=== PATIENT | male | born 1940 ===

== ENCOUNTER 2018-01-08 11:39 | Inpatient (IN) | payer OTHER ==
[2018-01-04 17:52] VITALS: BMI 22.0
[2018-01-08] MEDS ORDERED: Lidocaine 2% Inj (20ml) ONE (14:41)
[2018-01-08] MEDS ORDERED: Phenylephrine 10 mg/ml Inj ONE (15:34)
[2018-01-08] MEDS ORDERED: ePHEDrine 50 mg/ml Inj ONE (15:38)
--- NOTE | 2018-01-08 15:50 | CP.PCM.PN ---
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 The risks including serious morbidity (stroke, ICH etc) and even mortality were discussed, the benefits including decreased risk of stroke and the alternatives including medical management and surgery were discussed. 2) Further management based on the results of the procedure 3) Mild left sided weakness on exam
--- NOTE | 2018-01-08 18:15 | PCM.SURG1 ---
Surgeon's Initial Post Op Note - Surgeon's Notes Surgeon: Dr. Burciaga Sales Representative Trainee: Dr. Rdz, Dr. Sky Holm Type of Anesthesia: MAC Anesthesia Administered By: Hsei Pre-Operative Diagnosis: High grade Stenosis of right ICA Operative Findings: High grade stenosis of right ICA with multiple irregularities in the stenotic segment Post-Operative Diagnosis: Successful Stenting and Angioplasty of right ica high grade stenosis Operation Performed: Stenting and Angioplasty of right Internal Carotid Artery Specimen/Specimens Removed: None Estimated Blood Loss: EBL {In ML}: 200 Blood Products Given: N/A Drains Used: No Drains Post-Op Condition: Fair Date of Surgery/Procedure: 01/08/18 Time of Surgery/Procedure: 16:00
--- NOTE | 2018-01-08 18:19 | CP.PCM.CON ---
History of Present Illness - History of Present Illness History of Present Illness: Chief Concern: Left Sided Weakness HPI: Mr. Brown is a 77 yo gentleman with a medical history significant for arthritis who was brought in for left sided weakness. The patient was evaluated and found to have right mca territory patchy infarction. A CTA revealed a high grade stenosis of the proximal right ica and neuro intervention was consulted. The patient reports that he is much better now except for mild left hand weakness and numbness. Not other complaints at this time. All: NKDA Meds: Reviewed: PMH: Arthritis Social History: No t/e/d FH: NC On exam: Vitals reviewed MSE: AO X 3, No aphasia or neglect, No dysarthria CN: Pupils symmetric and reactive, VFF, EOM full, V1-3 intact, NO facial paresis , tongue midline Motor: 5/5 on right side, left leg 5/5, left hand 3/5, left arm 5/5 Sensory: Decreased over left hand Coord: No dysmetria Gait: Deferred MRI Brain: Multiple Acute infarctions the right hemisphere CTA: High grade stenosis of right ICA proximal segment Imp: 1 Acute Ischemic Stroke Recs: 1) The patient has a symptomatic high grade stenosis of the right ica 2) I had a detailed conversation with the patient, his and son regarding the serious nature of the patients condition and they express excellent understanding of the same. The risks including serious morbidity (stroke, ICH etc) and even mortality were discussed, the benefits including decreased risk of stroke and the alternatives including medical management and surgery were discussed. 3) Further management based on the results of the procedure 4) Approximately 45 minutes of critical care time was spent in evaluating and managing and documenting and coordinating care for this patient with acute ischemic stroke Past Patient History - Past Medical History & Family History Past Medical History?: Yes - Past Social History Smoking Status: Never Smoked - CARDIAC Hx Cardiac Disorders: No - PULMONARY Hx Respiratory Disorders: No - NEUROLOGICAL Hx Neurological Disorder: No - HEENT Hx HEENT Problems: No - RENAL Hx Chronic Kidney Disease: No - ENDOCRINE/METABOLIC Hx Endocrine Disorders: No - HEMATOLOGICAL/ONCOLOGICAL Hx Blood Disorders: No Hx AIDS: No Hx Human Immunodeficiency Virus (HIV): No - INTEGUMENTARY Hx Dermatological Problems: No - MUSCULOSKELETAL/RHEUMATOLOGICAL Hx Arthritis: Yes - GASTROINTESTINAL Hx Gastrointestinal Disorders: No - GENITOURINARY/GYNECOLOGICAL Hx Genitourinary Disorders: No - PSYCHIATRIC Hx Psychophysiologic Disorder: No Hx Substance Use: No - SURGICAL HISTORY Hx Surgeries: No - ANESTHESIA Hx Anesthesia: No Hx Anesthesia Reactions: No Hx Malignant Hyperthermia: No Meds Allergies/Adverse Reactions: Allergies Allergy/AdvReac Type Severity Reaction Status Date / Time No Known Allergies Allergy Verified 01/17/15 16:21 Results - Labs Result Diagrams: 01/09/18 06:40 01/09/18 06:40 Assessment & Plan - Assessment and Plan (Free Text) Assessment: Acute ischemic stroke Plan: Chief Concern: Left Sided Weakness HPI: Mr. Brown is a 77 yo gentleman with a medical history significant for arthritis who was brought in for left sided weakness. The patient was evaluated and found to have right mca territory patchy infarction. A CTA revealed a high grade stenosis of the proximal right ica and neuro intervention was consulted. The patient reports that he is much better now except for mild left hand weakness and numbness. Not other complaints at this time. All: NKDA Meds: Reviewed: PMH: Arthritis Social History: No t/e/d FH: NC On exam: Vitals reviewed MSE: AO X 3, No aphasia or neglect, No dysarthria CN: Pupils symmetric and reactive, VFF, EOM full, V1-3 intact, NO facial paresis , tongue midline Motor: 5/5 on right side, left leg 5/5, left hand 3/5, left arm 5/5 Sensory: Decreased over left hand Coord: No dysmetria Gait: Deferred MRI Brain: Multiple Acute infarctions the right hemisphere CTA: High grade stenosis of right ICA proximal segment Imp: 1 Acute Ischemic Stroke Recs: 1) The patient has a symptomatic high grade stenosis of the right ica 2) I had a detailed conversation with the patient, his and son regarding the serious nature of the patients condition and they express excellent understanding of the same. The risks including serious morbidity (stroke, ICH etc) and even mortality were discussed, the benefits including decreased risk of stroke and the alternatives including medical management and surgery were discussed. 3) Further management based on the results of the procedure 4) Approximately 45 minutes of critical care time was spent in evaluating and managing and documenting and coordinating care for this patient with acute ischemic stroke - Date & Time Date: 01/08/18 Time: 15:15
--- NOTE | 2018-01-08 18:23 | CP.PCM.CON ---
<Marvin Cross - Last Filed: 01/08/18 18:36> History of Present Illness - History of Present Illness History of Present Illness: Chief complaint: Left face and left upper extremity numbness HPI:77 years old male with no significant medical hx comes with Intermittent left facial numbness for 14 hours. He awoke with this numbness which also involves the left side of his tongue. He also has numbness at the upper left extremity. No trouble in swallowing, speaking, nor ambulating. No facial droop nor weakness at the extremities. He had a similar episode one month ago but this resolved spontaneously over few days. ICU was consulted to monitor patient s/p carotid endarectomy. PMH: Arthritis PSH: Denies SH: No illegal drug use; no Alcohol use; Never smoked FH: States: No Known family Allergies: NKDA Medication: ASA Review of Systems - Constitutional Constitutional: absent: Daytime Sleepiness, Headache, Snoring - EENT Eyes: absent: Blurred Vision, Loss of Peripheral Vision, Other Visual Disturbances Ears: absent: Ear Discharge Nose/Mouth/Throat: absent: Nasal Congestion, Bleeding Gums, Odynophagia, Facial Pain - Cardiovascular Cardiovascular: absent: Chest Pain, Chest Pain at Rest, Claudication, Diaphoresis, Edema, Orthopnea, Palpitations, Paroxysmal Nocturnal Dyspnea, Pedal Edema, Syncope - Respiratory Respiratory: absent: Dyspnea, Hemoptysis, Stridor, Pain on Inspiration, Change in Mucous Color - Gastrointestinal Gastrointestinal: absent: Belching, Change in Stool Character, Dyspepsia, Fecal Incontinence, Loose Stools, Melena, Nausea, Vomiting - Musculoskeletal Musculoskeletal: absent: Abnormal Gait, Arthralgias, Limited Range of Motion, Myalgias, Stiffness, Tingling - Integumentary Integumentary: absent: Bleeding Lesions, Change in Pigmentation, Lesions, Photosensitivity, Rash, Swelling, Unusual Bruising - Neurological Neurological: absent: Abnormal Hearing, Burning Sensations, Lack of Coordination , Syncope, Tingling, Tremor, Vertigo - Psychiatric Psychiatric: absent: Anhedonia, Change in Appetite, Mood Swings, Panic Attacks - Endocrine Endocrine: absent: Polydipsia, Polyphagia, Polyuria Past Patient History - Past Medical History & Family History Past Medical History?: Yes - Past Social History Smoking Status: Never Smoked - CARDIAC Hx Cardiac Disorders: No - PULMONARY Hx Respiratory Disorders: No - NEUROLOGICAL Hx Neurological Disorder: No - HEENT Hx HEENT Problems: No - RENAL Hx Chronic Kidney Disease: No - ENDOCRINE/METABOLIC Hx Endocrine Disorders: No - HEMATOLOGICAL/ONCOLOGICAL Hx Blood Disorders: No Hx AIDS: No Hx Human Immunodeficiency Virus (HIV): No - INTEGUMENTARY Hx Dermatological Problems: No - MUSCULOSKELETAL/RHEUMATOLOGICAL Hx Arthritis: Yes - GASTROINTESTINAL Hx Gastrointestinal Disorders: No - GENITOURINARY/GYNECOLOGICAL Hx Genitourinary Disorders: No - PSYCHIATRIC Hx Psychophysiologic Disorder: No Hx Substance Use: No - SURGICAL HISTORY Hx Surgeries: No - ANESTHESIA Hx Anesthesia: No Hx Anesthesia Reactions: No Hx Malignant Hyperthermia: No Meds Allergies/Adverse Reactions: Allergies Allergy/AdvReac Type Severity Reaction Status Date / Time No Known Allergies Allergy Verified 01/17/15 16:21 Physical Exam - Head Exam Head Exam: ATRAUMATIC, NORMAL INSPECTION, NORMOCEPHALIC - Eye Exam Eye Exam: EOMI, Normal appearance, PERRL Pupil Exam: NORMAL ACCOMODATION, PERRL - ENT Exam ENT Exam: Mucous Membranes Moist, Normal Oropharynx - Neck Exam Neck exam: Positive for: Normal Inspection - Respiratory Exam Respiratory Exam: Clear to Auscultation Bilateral, NORMAL BREATHING PATTERN - Cardiovascular Exam Cardiovascular Exam: REGULAR RHYTHM, +S1, +S2 - GI/Abdominal Exam GI & Abdominal Exam: Normal Bowel Sounds, Soft. absent: Tenderness - Extremities Exam Additional comments: pressure bandage in the left and right groin. Small hematoma appreciated in the right groin. - Back Exam Back exam: NORMAL INSPECTION. absent: CVA tenderness (L), CVA tenderness (R), paraspinal tenderness - Neurological Exam Neurological exam: Alert, CN II-XII Intact, Oriented x3 - Skin Skin Exam: Dry, Intact Assessment & Plan - Assessment and Plan (Free Text) Assessment: 77 yr old male with new embolic stroke in right mca territory, most likely from rt ica stenosis as etiology. Patient is s/p carotid endarectomy and admitted to ICU for further management. Plan: Cardiology:s/pStenting and Angioplasty of right ica high grade stenosis, Dyslipidemia -MRI of head showed multifocal small acute infarctions in the right frontal and parietal cortex, and border zone, moderate chronic microangiopathic changes and mild age-related global parenchymal volume loss -CTA neck and head showed moderate stenosis at proximal right ica -ASA/Plavix held today post surgery. Will restart in the A.M. -Start statin tomorrow. -Lovenox held for the surgery. Restart tomorrow. <TorBhupinder mercedes - Last Filed: 01/08/18 18:52> Meds - Medications Medications: Current Medications Aspirin (Ecotrin) 81 mg PO DAILY NUPUR Sodium Chloride (Sodium Chloride 0.9%) 1,000 mls @ 75 mls/hr IV .[id number] NUPUR Pantoprazole Sodium (Protonix Inj) 40 mg IVP DAILY NUPUR Attending/Attestation - Attestation I have personally seen and examined this patient.: Yes I have fully participated in the care of the patient.: Yes I have reviewed all pertinent clinical information: Yes Notes (Text): 01/08/18 18:51 I have seen and examined the patient. Medical records, lab studies, and imaging were reviewed by me and a management plan was formulated on multidisciplinary rounds with resident Dr. Cross. I agree with their documented assessment and plan. Patient is clinically stable post-op. He states his left side weakness has now improved. Will monitor, q1h vascular access checks. Maintain SBP 100-140. Critical Care Time 35 minutes. Multi-disciplinary rounds were performed with house staff, nursing, speech therapy, respiratory therapy, pharmacy and nutrition with integrated input from the primary team/attending and other consulting services. The documented time is cumulative and includes review of patient data/exams/labs/chart review and examination of the patient on rounds and throughout the day; time is exclusive of any procedures or teaching time.
[2018-01-08] MEDS ORDERED: Sodium Chloride 0.9% 1,000 ML IV SCH (18:45)
--- NOTE | 2018-01-08 20:12 | CP.PCM.HP ---
History of Present Illness - History of Present Illness History of Present Illness: CC: Post-Status Stenting and Angioplasty of right Internal Carotid Artery due to High grade Stenosis of right ICA HPI: Patient is a 77 year old man visiting his sister and nephew from [place], with past medical history of hypercholesterolemia, who presented to [facility] on 01/04/18, with symptoms of Intermittent left facial numbness for 14 hours as well tongue stiffness and numbness/tingling in right index & thumb and upper left extremity. As per patient's nephew at bedside, patient had been experiencing symptoms for less than 48 hours. During the onset of these symptoms, patient denies nausea, vomiting, headache, blurry vision, gait disturbance, noted facial dropping or slurred speech. As per nephew, patient does not have facial dropping or slurred speech. PMHx: Arthritis and hypercholesterolemia PSHx: Denies FHx: Father: due to complications of cor pulmonale and had hx of gastric cancer. * Sister: Heart regurgitation * Uncle: Stroke Medication: ASA and [place]-3 Allergies: NKDA SHx: Lives in [place], . Denies former or current tobacco, ETOH and illicit drugs Present on Admission - Present on Admission Any Indicators Present on Admission: No Review of Systems - Constitutional Constitutional: absent: Chills, Fatigue, Fever, Headache, Weakness - EENT Eyes: absent: Blurred Vision, Change in Vision Nose/Mouth/Throat: absent: Nasal Congestion, Nasal Discharge - Cardiovascular Cardiovascular: absent: Chest Pain, Dyspnea, Lightheadedness, Palpitations - Respiratory Respiratory: absent: Cough, Dyspnea, Wheezing - Gastrointestinal Gastrointestinal: Nausea. absent: Abdominal Pain, Diarrhea, Vomiting - Neurological Neurological: Numbness, Tingling (Numbness and tingling in right index and thumb ). absent: Confusion, Dizziness, Headaches, Tremor, Weakness Past Patient History - Past Medical History & Family History Past Medical History?: Yes - Past Social History Smoking Status: Never Smoked - CARDIAC Hx Cardiac Disorders: No - PULMONARY Hx Respiratory Disorders: No - NEUROLOGICAL Hx Neurological Disorder: No - HEENT Hx HEENT Problems: No - RENAL Hx Chronic Kidney Disease: No - ENDOCRINE/METABOLIC Hx Endocrine Disorders: No - HEMATOLOGICAL/ONCOLOGICAL Hx Blood Disorders: No Hx AIDS: No Hx Human Immunodeficiency Virus (HIV): No - INTEGUMENTARY Hx Dermatological Problems: No - MUSCULOSKELETAL/RHEUMATOLOGICAL Hx Arthritis: Yes - GASTROINTESTINAL Hx Gastrointestinal Disorders: No - GENITOURINARY/GYNECOLOGICAL Hx Genitourinary Disorders: No - PSYCHIATRIC Hx Psychophysiologic Disorder: No Hx Substance Use: No - SURGICAL HISTORY Hx Surgeries: No - ANESTHESIA Hx Anesthesia: No Hx Anesthesia Reactions: No Hx Malignant Hyperthermia: No Meds Allergies/Adverse Reactions: Allergies Allergy/AdvReac Type Severity Reaction Status Date / Time No Known Allergies Allergy Verified 01/17/15 16:21 Physical Exam - Constitutional Appears: No Acute Distress - Head Exam Head Exam: ATRAUMATIC, NORMAL INSPECTION - Eye Exam Eye Exam: EOMI, Normal appearance, PERRL Pupil Exam: NORMAL ACCOMODATION, PERRL - ENT Exam ENT Exam: Mucous Membranes Moist - Respiratory Exam Respiratory Exam: Clear to Auscultation Bilateral, NORMAL BREATHING PATTERN. absent: Rales, Rhonchi, Wheezes - Cardiovascular Exam Cardiovascular Exam: REGULAR RHYTHM, +S1, +S2 - GI/Abdominal Exam GI & Abdominal Exam: Normal Bowel Sounds, Soft. absent: Diminished Bowel Sounds , Distended, Guarding - Extremities Exam Extremities exam: Positive for: full ROM, normal inspection. Negative for: calf tenderness, pedal edema Additional comments: Bilateral groin dressed, s/p Post-Status Stenting and Angioplasty of right Internal Carotid Artery due to High grade Stenosis of right ICA Left DP AND PT palpable Right PT palpable and DP faint on palpation and not audible via doppler - Back Exam Back exam: absent: CVA tenderness (L), CVA tenderness (R) - Neurological Exam Neurological exam: Alert, CN II-XII Intact, Oriented x3 - Psychiatric Exam Psychiatric exam: Normal Affect, Normal Mood - Skin Skin Exam: Normal Color Assessment & Plan (1) Carotid stenosis, right Assessment and Plan: Interventional Neurology: Dr. Patrica Sifuentes * Post-Status Stenting and Angioplasty of right Internal Carotid Artery due to High grade Stenosis of right ICA POD#1 Neurology: Dr. BERNAL * Management as per recommendation Imaging: -MRI of head showed multifocal small acute infarctions in the right frontal and parietal cortex, and border zone, moderate chronic microangiopathic changes and mild age-related global parenchymal volume loss -CTA neck and head showed moderate stenosis at proximal right ICA -Head CT: Nonspecific white matter changes. Acute infarction may be CT occult within first 24 hours. If a focal deficit persists, consider followup CT or MRI for further evaluation. -Neck MRA: No evidence of hemodynamically significant stenosis in the internal carotid arteries.Apparent sought segment stenosis in the right internal carotid artery approximately 1.5 cm distal to the origin. - Head MRA:Normal MR angiography of the brain. - Cartoid Artery US: Elevated peak systolic velocity and ICA/ CCA velocity ratio in the right internal carotid artery corresponding to severe (62 to 79%) stenosis. No evidence of hemodynamically significant stenosis in the left internal carotid artery. Patent vertebral arteries with antegrade flow. Medication/Management: * Aspirin 81mg PO daily * Plavix 75mg PO daily * Crestor 10mg PO HS Status: Acute (2) Acute CVA (cerebrovascular accident) Assessment and Plan: Neurology: Dr. BERNAL * Management as per recommendation Imaging: -MRI of head showed multifocal small acute infarctions in the right frontal and parietal cortex, and border zone, moderate chronic microangiopathic changes and mild age-related global parenchymal volume loss -CTA neck and head showed moderate stenosis at proximal right ICA -Head CT: Nonspecific white matter changes. Acute infarction may be CT occult within first 24 hours. If a focal deficit persists, consider followup CT or MRI for further evaluation. -Neck MRA: No evidence of hemodynamically significant stenosis in the internal carotid arteries.Apparent sought segment stenosis in the right internal carotid artery approximately 1.5 cm distal to the origin. - Head MRA:Normal MR angiography of the brain. - Cartoid Artery US: Elevated peak systolic velocity and ICA/ CCA velocity ratio in the right internal carotid artery corresponding to severe (62 to 79%) stenosis. No evidence of hemodynamically significant stenosis in the left internal carotid artery. Patent vertebral arteries with antegrade flow. Labs: Lipid Panel: TGL: 113, Cholesterol: 255, LDL: 195, HDL: 40 Hemoglobin A1c : 5.7 Medication/Management: * Aspirin 81mg PO daily * Plavix 75mg PO daily * Crestor 10mg PO HS Status: Acute (3) Hyperlipidemia Assessment and Plan: Lipid Panel: TGL: 113, Cholesterol: 255, LDL: 195, HDL: 40 Medications: * Crestor 10mg PO HS Status: Acute (4) Prophylactic measure Assessment and Plan: GI: Protonix 40 PO daily DVT: SCDs, will resume anticoagualtion as recommended as patient is Post-Status Stenting and Angioplasty of right Internal Carotid Artery due to High grade Stenosis of right ICA POD#1 All plans and management discussed with attending Status: Acute
[2018-01-09 06:52] LABS: BASO # 0.1 K/uL (0.0-0.2); BASO % 0.5 % (0.0-2.0); EOS # 0.2 K/uL (0.0-0.7); EOS % 1.4 % (0.0-4.0); HEMOGLOBIN 10.9 g/dL (12.0-18.0); LYMPH # 1.8 K/uL (1.0-4.3); LYMPH % 15.7 % (20.0-40.0); MEAN CELL VOLUME 90.9 fL (80.0-94.0); MEAN CORPUSCULAR HEMOGLOBIN 30.4 pg (27.0-31.0); MEAN CORPUSCULAR HGB CONC 33.5 g/dL (33.0-37.0); MEAN PLATELET VOLUME 8.7 fL (7.2-11.7); MONO # 1.4 K/uL (0.0-0.8); NEUT % 70.4 % (50.0-75.0); RBC 3.59 Mil/uL (4.40-5.90); RED CELL DISTRIBUTION WIDTH 13.1 % (11.5-14.5); WHITE BLOOD COUNT 11.4 K/uL (4.8-10.8)
[2018-01-09 07:11] LABS: MAGNESIUM 2.2 mg/dL (1.6-2.3)
[2018-01-09 07:12] LABS: ALB/GLOB RATIO 0.9 (1.0-2.1); ALBUMIN 2.8 g/dL (3.5-5.0); ALT/SGPT 28 U/L (21-72); AST/SGOT 27 U/L (17-59); BLOOD UREA NITROGEN 19 mg/dL (9-20); CALCIUM 7.5 mg/dl (8.6-10.4); GFR AFRICAN-AMERICAN > 60; GFR NON-AFRICAN AMERICAN > 60
[2018-01-09 08:22] VITALS: BP 102/51
--- NOTE | 2018-01-09 13:07 | CP.PCM.DIS ---
Provider - Provider Date of Admission: 01/08/18 13:30 Attending physician: Evert Banda MD Primary care physician: None Consults: Intervential Radiology Dr. Burciaga Time Spent in preparation of Discharge (in minutes): 40 Hospital Course - Lab Results Lab Results: Most Recent Lab Values WBC 11.4 K/uL (4.8-10.8) H 01/09/18 06:40 RBC 3.59 Mil/uL (4.40-5.90) L 01/09/18 06:40 Hgb 10.9 g/dL (12.0-18.0) L 01/09/18 06:40 Hct 32.7 % (35.0-51.0) L 01/09/18 06:40 MCV 90.9 fL (80.0-94.0) 01/09/18 06:40 MCH 30.4 pg (27.0-31.0) 01/09/18 06:40 MCHC 33.5 g/dL (33.0-37.0) 01/09/18 06:40 RDW 13.1 % (11.5-14.5) 01/09/18 06:40 Plt Count 198 K/uL (130-400) 01/09/18 06:40 MPV 8.7 fL (7.2-11.7) 01/09/18 06:40 Neut % (Auto) 70.4 % (50.0-75.0) 01/09/18 06:40 Lymph % (Auto) 15.7 % (20.0-40.0) L 01/09/18 06:40 [place] % (Auto) 12.0 % (0.0-10.0) H 01/09/18 06:40 Eos % (Auto) 1.4 % (0.0-4.0) 01/09/18 06:40 Baso % (Auto) 0.5 % (0.0-2.0) 01/09/18 06:40 Neut # (Auto) 8.0 K/uL (1.8-7.0) H 01/09/18 06:40 Lymph # (Auto) 1.8 K/uL (1.0-4.3) 01/09/18 06:40 [place] # (Auto) 1.4 K/uL (0.0-0.8) H 01/09/18 06:40 Eos # (Auto) 0.2 K/uL (0.0-0.7) 01/09/18 06:40 Baso # (Auto) 0.1 K/uL (0.0-0.2) 01/09/18 06:40 Sodium 131 mmol/L (132-148) L 01/09/18 06:40 Potassium 4.3 mmol/L (3.6-5.2) 01/09/18 06:40 Chloride 99 mmol/L (98-107) 01/09/18 06:40 Carbon Dioxide 26 mmol/L (22-30) 01/09/18 06:40 Anion Gap 11 (10-20) 01/09/18 06:40 BUN 19 mg/dL (9-20) 01/09/18 06:40 Creatinine 0.8 mg/dL (0.8-1.5) 01/09/18 06:40 Est GFR ( Amer) > 60 01/09/18 06:40 Est GFR (Non-Af Amer) > 60 01/09/18 06:40 Random Glucose 82 mg/dL (75-110) 01/09/18 06:40 Calcium 7.5 mg/dl (8.6-10.4) L 01/09/18 06:40 Phosphorus 3.6 mg/dL (2.5-4.5) 01/09/18 06:40 Magnesium 2.2 mg/dL (1.6-2.3) 01/09/18 06:40 Total Bilirubin 0.5 mg/dL (0.2-1.3) 01/09/18 06:40 AST 27 U/L (17-59) 01/09/18 06:40 ALT 28 U/L (21-72) 01/09/18 06:40 Alkaline Phosphatase 49 U/L (38-126) 01/09/18 06:40 Total Protein 5.8 g/dL (6.3-8.3) L 01/09/18 06:40 Albumin 2.8 g/dL (3.5-5.0) L 01/09/18 06:40 Globulin 3.1 gm/dL (2.2-3.9) 01/09/18 06:40 Albumin/Globulin Ratio 0.9 (1.0-2.1) L 01/09/18 06:40 - Hospital Course Hospital Course: Hospitalist Discharge Summary Patient was seen and examined at 1:00 PM 01/09/18 From H&P: HPI: Patient is a 77 year old man visiting his sister and nephew from [place], with past medical history of hypercholesterolemia, who presented to [facility] on 01/04/18, with symptoms of Intermittent left facial numbness for 14 hours as well tongue stiffness and numbness/tingling in right index & thumb and upper left extremity. As per patient's nephew at bedside, patient had been experiencing symptoms for less than 48 hours. During the onset of these symptoms, patient denies nausea, vomiting, headache, blurry vision, gait disturbance, noted facial dropping or slurred speech. As per nephew, patient does not have facial dropping or slurred speech. MRI Brain showed multiple areas of infarcts Right Parietal/Frontal Area Echocardiogram was unremarkable CTA Neck showed Right Internal Carotid Moderate Disease Patient was transferred from [facility] to [facility] on 01/08/18 for Right Carotid Artery Stenting by Interventional Neurology Dr. Burciaga. He was then monitored in the ICU overnight and there were no events and his blood pressure remained relatively normal. His presenting symptoms to [facility] have completely resolved. Upon FULL ROS NO dysphagia/odynopahgia NO soreness in throat NO cough NO sinus/nasal congestion NO fever/chills NO muscle aches/pains NO joint pain NO chest pain/palpations NO SOB NO abdominal pain NO n/v/d/c NO burning pain with urination NO SINGLETARY NO paresthesias NO lightheadedness/dizziness Exam: General: AAOX3, NAD HEENT: NCA, EOMI, PERRLA, NO cervical/supraclavicular/submandibular lymphadenopathy, NO pharyngeal erythema/exudate, Nasal Turbinates are nonerythematous/nonedematous, Oral Mucosa is moist Cardio: NS1 and NS2, NO M/R/G Resp: CTA B/L, NO R/R/W GI: BSx4, Soft, NT, NO HSM, NO guarding/rebound tenderness Ext: Pulses are strong and equal, Capillary Refill is 2 seconds, NO edema, Bilateral Groin area surgical entry site without evidence of bleeding or hematoma Neuro: CN II through XII are grossly intact, 5/5 strength with flexion and extension against my resistence of the bilateral upper and lower extremities, 2/ 4 DTRs gait is normal Patient is stable for discharge. The following instructions were explained to patient, voicemail left for his Nephew Clifford [phone] explaining the instructions, and a copy provided to him upon discharge: 1). Schedule follow up with Dr. Burciaga to take place in 14 days by calling his office [phone]. 2). Please have the following prescription filled at your pharmacy: Aspirin 81 mg, 1 tablet by mouth 1x/day (breakfast), Dispense #30, NO refills Plavix 75 mg, 1 tablet by mouth 1x/day (breakfast), Dispense #30, NO refills Atorvastatin 20 mg, 1 tablet by mouth 1x/day (dinner), Dispense #30, NO refills 3). Please take care and be well. Evert Banda D.O. Discharge Exam - Head Exam Head Exam: ATRAUMATIC, NORMAL INSPECTION Discharge Plan - Follow Up Plan Condition: GOOD Disposition: HOME/ ROUTINE
--- NOTE | 2018-01-09 15:57 | CP.CCUPN ---
CCU Subjective - Physician Review Events Since Last Encounter (Free Text): 01/09/18 15:49 feeling well, no complaints. CCU Objective - Vital Signs / Intake & Output Intake and Output (Last 8hrs): Intake & Output 01/09/18 01/09/18 01/09/18 06:59 14:59 22:59 Intake Total 840 1540 Output Total 650 1250 Balance 190 290 Weight 115 lb 9.6 oz Intake: Intake, IV Amount 600 300 left wrist 600 300 Oral 240 1240 Output: Urine 650 1250 Urine, Voided 650 1250 Other: # Voids Urine, Voided 1 0 # Bowel Movements 0 1 - Physical Exam Head: Positive for: Atraumatic, Normocephalic Pupils: Positive for: PERRL Extroacular Muscles: Positive for: EOMI Conjunctiva: Positive for: Normal Ears: Positive for: Normal Mouth: Positive for: Moist Mucous Membranes Neck: Positive for: Normal Range of Motion Respiratory/Chest: Positive for: Clear to Auscultation Cardiovascular: Positive for: Regular Rate and Rhythm Abdomen: Positive for: Normal Bowel Sounds. Negative for: Tenderness, Distention Neurological: Positive for: GCS=15, CN II-XII Intact Psychiatric: Positive for: Alert, Oriented x 3 - Medications Active Medications: Active Medications Generic Name Dose Route Start Last Admin Trade Name Freq PRN Reason Stop Dose Admin Aspirin 81 mg 01/09/18 10:00 01/09/18 10:46 Ecotrin PO 81 mg DAILY NUPUR Administration Clopidogrel Bisulfate 75 mg 01/09/18 10:00 01/09/18 10:46 Plavix PO 75 mg DAILY NUPUR Administration Famotidine 20 mg 01/09/18 10:00 01/09/18 10:45 Pepcid PO 20 mg DAILY NUPUR Administration Sodium Chloride 1,000 mls @ 75 mls/hr 01/08/18 18:45 01/08/18 19:45 Sodium Chloride 0.9% IV 75 mls/hr .[id number] NUPUR Administration Rosuvastatin Calcium 10 mg 01/08/18 22:00 01/08/18 21:26 Crestor PO 10 mg HS NUPUR Administration - Patient Studies Lab Studies: Lab Studies 01/09/18 01/09/18 01/09/18 Range/Units 06:40 06:40 06:40 WBC 11.4 H (4.8-10.8) K/uL RBC 3.59 L (4.40-5.90) Mil/uL Hgb 10.9 L (12.0-18.0) g/dL Hct 32.7 L (35.0-51.0) % MCV 90.9 (80.0-94.0) fL MCH 30.4 (27.0-31.0) pg MCHC 33.5 (33.0-37.0) g/dL RDW 13.1 (11.5-14.5) % Plt Count 198 (130-400) K/uL MPV 8.7 (7.2-11.7) fL Neut % (Auto) 70.4 (50.0-75.0) % Lymph % (Auto) 15.7 L (20.0-40.0) % [place] % (Auto) 12.0 H (0.0-10.0) % Eos % (Auto) 1.4 (0.0-4.0) % Baso % (Auto) 0.5 (0.0-2.0) % Neut # (Auto) 8.0 H (1.8-7.0) K/uL Lymph # (Auto) 1.8 (1.0-4.3) K/uL [place] # (Auto) 1.4 H (0.0-0.8) K/uL Eos # (Auto) 0.2 (0.0-0.7) K/uL Baso # (Auto) 0.1 (0.0-0.2) K/uL Sodium 131 L (132-148) mmol/L Potassium 4.3 (3.6-5.2) mmol/L Chloride 99 (98-107) mmol/L Carbon Dioxide 26 (22-30) mmol/L Anion Gap 11 (10-20) BUN 19 (9-20) mg/dL Creatinine 0.8 (0.8-1.5) mg/dL Est GFR ( Amer) > 60 Est GFR (Non-Af Amer) > 60 Random Glucose 82 (75-110) mg/dL Calcium 7.5 L (8.6-10.4) mg/dl Phosphorus 3.6 (2.5-4.5) mg/dL Magnesium 2.2 (1.6-2.3) mg/dL Total Bilirubin 0.5 (0.2-1.3) mg/dL AST 27 (17-59) U/L ALT 28 (21-72) U/L Alkaline Phosphatase 49 (38-126) U/L Total Protein 5.8 L (6.3-8.3) g/dL Albumin 2.8 L (3.5-5.0) g/dL Globulin 3.1 (2.2-3.9) gm/dL Albumin/Globulin Ratio 0.9 L (1.0-2.1) Laboratory Results - last 24 hr 01/09/18 01/09/18 01/09/18 06:40 06:40 06:40 WBC 11.4 H RBC 3.59 L Hgb 10.9 L Hct 32.7 L MCV 90.9 MCH 30.4 MCHC 33.5 RDW 13.1 Plt Count 198 MPV 8.7 Neut % (Auto) 70.4 Lymph % (Auto) 15.7 L [place] % (Auto) 12.0 H Eos % (Auto) 1.4 Baso % (Auto) 0.5 Neut # (Auto) 8.0 H Lymph # (Auto) 1.8 [place] # (Auto) 1.4 H Eos # (Auto) 0.2 Baso # (Auto) 0.1 Sodium 131 L Potassium 4.3 Chloride 99 Carbon Dioxide 26 Anion Gap 11 BUN 19 Creatinine 0.8 Est GFR ( Amer) > 60 Est GFR (Non-Af Amer) > 60 Random Glucose 82 Calcium 7.5 L Phosphorus 3.6 Magnesium 2.2 Total Bilirubin 0.5 AST 27 ALT 28 Alkaline Phosphatase 49 Total Protein 5.8 L Albumin 2.8 L Globulin 3.1 Albumin/Globulin Ratio 0.9 L Review of Systems - Review of Systems All systems: reviewed and no additional remarkable complaints except (no complaints) Critical Care Progress Note - Nutrition Nutrition: Nutrition Category Date Time Status Heart Healthy Diet [DIET] Diets 01/08/18 Dinner Active Assessment/Plan (1) Carotid stenosis, right Assessment and plan: 77 yr old male with new embolic stroke in right mca territory, most likely from rt ica stenosis as etiology. Patient is s/p carotid endarectomy and admitted to ICU for further management. Neuro: alert and oriented x 3, no focal defecits, decreased neuro check to q4h. Pulm: no acute issues, breathing spontaneously on room air. CV: hemodynamically stable. maintaining SBP 100-140. Hem: mild anemia, stable. Mild bleeding around catheterization site, monitoring. ASA and Plavix. Renal: no acute issues, urine output wnl, will monitor. Endo: no acute issues GI: heart healthy diet ID: no acute issues DVT proph - SCD's, holding a/c with current bleed GI proph - protonix Code status - full code Critical Care Time spent full code Multi-disciplinary rounds were performed with house staff, nursing, speech therapy, respiratory therapy, pharmacy and nutrition with integrated input from the primary team/attending and other consulting services. The documented time is cumulative and includes review of patient data/exams/labs/chart review and examination of the patient on rounds and throughout the day; time is exclusive of any procedures or teaching time. Current Visit: No Status: Acute
[2018-01-09 18:00] VITALS: PULSE 78; RESP 18; TEMP 98; O2SAT 99
== END 2018-01-09 16:20 | disposition home or self-care (01) | DRG 36 ==
LOC: C.SPRAD 11:39 → C.9S 13:30 → C.9I 18:36
PROVIDERS: ADMIT Family Medicine; ATTEND Family Medicine
PROC: 037K3DZ Dilation of Right Internal Carotid Artery with Intraluminal Device, Percutaneous Approach (ICD-10-PCS; principal; 2018-01-08)
DX: I63.231 Cerebral infarction due to unspecified occlusion or stenosis of right carotid arteries (principal); D64.9 Anemia, unspecified; E78.00 Pure hypercholesterolemia, unspecified; Z79.82 Long term (current) use of aspirin; Z82.3 Family history of stroke; R20.0 Anesthesia of skin